=== PATIENT | female | born 1930 | race Caucasian/White ===

== ENCOUNTER 2017-01-02 16:32 | Inpatient (IN) ==
--- NOTE | 2017-01-02 17:21 | Emergency Department Note ---
Renata Flores Brittany, am scribing for, and in the presence of, Román Rosa MD 17:18. Moe Flores Charles R, MD, personally performed the services described in this documentation, ascribed by Juliet Yanez in my presence, and it is both accurate and complete 721 . Arrival - Arrival Chief Complaint: Shortness of Breath Stated Complaint: short of breath ED Nursing Triage Note: short of breath went to [facility] for treatment dx with R sided pneumonia CHF and Afib given 40 lasix 10 cardizem 500 levaquin allergies to sulfa and ASA pt is stable at this time chart and xray sent with pt Mode of Arrival: Stretcher Limitations: No Limitations Source: Family Time Seen by Provider: 01/02/17 16:57 - History of Present Illness HPI Narrative: This is a deaf 86 y/o white female,who presents to the ED by EMS for further evaluation of SOB which started last night. Her son reports pt was seen at [facility] for TX. Her son reports pt was DX with right sided pneumonia, CHF, and A- fib. She was given 40 Lasix, 10 Cardizem, and 500 Levaquin. Pt complains of right sided back and right sided shoulder pain. She states she thought it was Pleurisy. Her son notes some confusion since last night. Her son notes pt has a home health nurse come out to help pt bathe. Pt had a fever there at [facility] but here in the ED she is afebrile. Pt has no other complaints/pain in the ED a this time. Pt has a PMHx of diabetes, A-fib, and deaf. Pt denies a surgical Hx. Pt denies a family medical hx. Pt denies a social Hx. Onset (ago): hour(s) (Started last night) Consistency: constant Severity: moderate Review of System - Review of System 12 point system: reviewed and no additional remarkable complaints except as stated - Review of System Constitutional: Absent: fever Cardiovascular: Present: dyspnea on exertion Musculoskeletal: Present: back pain (Right sided back pain ), other (Right sided shoulder pain ) Medical,Surgical,& Family Hx - Medical History Cardio: History of: Cardiac Dysrhythmia (A-fib) HEENT: History of: Ear Problem (Pt is deaf but is able to communicate. ) Endocrine: History of: Diabetes Mellitus (IDDM), Diabetes Mellitus (NIDDM) Exam Vital Signs: Vital Signs Temperature 98.6 F 01/02/17 16:34 Pulse Rate 103 H 01/02/17 16:34 Respiratory Rate 19 01/02/17 16:34 Blood Pressure 124/84 01/02/17 16:34 O2 Sat by Pulse Oximetry 98 01/02/17 16:34 - General General appearance: alert, in no apparent distress, other (Deaf but communitcates execellent) - Head Head exam: Present: atraumatic, normocephalic, normal inspection - Eye Eye exam: Present: normal appearance, PERRL, EOMI. Absent: nystagmus - ENT ENT exam: Present: mucous membranes dry - Neck Neck exam: Present: normal inspection, full ROM, trachea midline. Absent: tenderness - Chest Chest inspection: Present: normal inspection, symmetric chest wall rise. Absent : tenderness - Respiratory Respiratory exam: Present: normal lung sounds bilaterally. Absent: rales, respiratory distress, rhonchi, stridor, wheezes - Cardiovascular Cardiovascular exam: Present: normal rhythm, tachycardia, normal heart sounds. Absent: murmur, rubs, gallop, clicks, JVD - Abdominal Exam Abdominal exam: Present: soft, normal bowel sounds. Absent: distention, tenderness, guarding, rebound, rigidity - Rectal Exam Rectal exam: Present: deferred - Extremities Exam Extremities exam: Present: normal capillary refill, pedal edema (+2 pedal Edema) , other (Hammertoe on the right foot) - Back Exam Back exam: Present: normal inspection, full ROM. Absent: tenderness, muscle spasm, rashes - Neurological Exam Neurological exam: Present: alert, oriented X3, CN II-XII intact. Absent: motor sensory deficit - Psychiatric Psychiatric exam: Present: normal affect, normal mood. Absent: depressed, agitated, anxious, flat affect, manic - Skin Skin exam: Present: warm, dry, intact, normal color. Absent: rash, cyanosis, diaphoresis, erythema, pallor, mottled Course - Consultations Consultation #1: Hospitalist will admit patient Time: 17:20 Results - Labs Lab Results: I have reviewed the patients labs Labs: All results reviewed from previous Disposition Clinical Impression: Right lower lobe pneumonia, Atrial fibrillation with RVR, Congestive heart failure, Generalized weakness, Fever Case discussed with: patient, patient's family Disposition: Still a Patient Condition: Guarded Time of Disposition: 17:21
[2017-01-02] MEDS ORDERED: FUROSEMIDE 40 MG/4 ML VIAL IV STA (17:22)
[2017-01-02] MEDS ORDERED: ALBUTEROL/IPRATROPIUM 3 ML NEB RESP TX STA (17:22)
[2017-01-02] MEDS ORDERED: FUROSEMIDE 40 MG/4 ML VIAL ONE (17:33)
--- NOTE | 2017-01-02 18:04 | Hospitalist History & Physical ---
Assessment and Plan - Time spent with patient Time spent with patient: Greater than 30 minutes (1) Dyspnea Status: Acute Assessment and plan: Admit for right pneumonia. Start antibiotics, IV hydration, nebs, supplemental oxygen as needed. Current Visit: Yes (2) Atrial fibrillation with RVR Status: Acute Assessment and plan: Cardiazem was given at [facility]; currently patient is Afib with controlled rate of 84-90 Current Visit: Yes History of Present Illness Chief complaint: shortness of breath History of present illness: Ms. Brito is a 86 year old white female with PMHx of Deafness; Chronic Afib; diabetes; GERD; HTN; CHF; constipation presented to the ED as a transfer from [facility] for further evaluation of Shortness of breath and palpitations and diagnosis of right sided pneumonia. She reports a productive cough of clear sputum. She reports shortness of breath started this morning. She had a low grade temperature or 100.0 per family. She denies chest pain, nausea, vomiting, chills, or headache. IN [facility] ED: CXR showed right lower lobe pneumonia; small right pleural effusion; cardiomegaly. LABS: BUN 30 Creatinine 0.9; Glucose 174; INR 1.21; PT 15.6; BNP 2088; She was given Lasix 40 ; Cardiazem 10; and Levaquin 500. Her son in the room and assisted with information during exam. Patient can read lips very well and also has a dry erase board to assist with communication. After discussion with Dr Rosa in the ED and Dr Fernandez with Hospital Services, it was agreed to admit patient for further evaluation and treatment. Home medications will be reviewed and reconciliation to follow. Home Medications Medication Instructions Recorded Confirmed Type Albuterol Inhaler [Proventil 2 puff INH Q6H PRN 01/02/17 01/02/17 History Inhaler] Albuterol Neb [Proventil Neb] 2.5 mg RESP TX Q4H PRN 01/02/17 01/02/17 History Cyanocobalamin (Vitamin B-12) 1,000 mcg IJ Q30D 01/02/17 01/02/17 History [Cyanocobalamin Injection] Dextran 70/Hypromellose/Pf 1 drop BOTH EYES QID 01/02/17 01/02/17 History [Genteal Tears 0.1%-0.3% Drop] Diclofenac Sodium [Diclofenac 1 applic TOP QID PRN 01/02/17 01/02/17 History Sodium 1% Gel] Docusate Sodium Cap [Colace Cap] 100 mg PO BID 01/02/17 01/02/17 History Fluticasone 50 Mcg Nasal [place] 1 spray BOTH NARES BID 01/02/17 01/02/17 History [Flonase Nasal [place]] Fluticasone/Salmeterol 250-50 1 puff INH BID 01/02/17 01/02/17 History [Advair 250-50] Gabapentin Cap/Tab [Neurontin 100 mg PO TID PRN 01/02/17 01/02/17 History Cap/Tab] Lactulose 20 gm PO QAM 01/02/17 01/02/17 History Metformin HCl [Metformin HCl ER] 1,000 mg PO DAILY W/BREAKFAST 01/02/17 History Metoprolol Succinate 25 mg PO QAM 01/02/17 01/02/17 History Montelukast Tab [Singulair Tab] 10 mg PO BEDTIME 01/02/17 01/02/17 History Omeprazole 20 mg PO AC BREAKFAST 01/02/17 01/02/17 History Ondansetron [Ondansetron Odt] 4 mg PO BID PRN 01/02/17 01/02/17 History Pravastatin [Pravachol] 40 mg PO BEDTIME 01/02/17 01/02/17 History Rivaroxaban [Xarelto] 15 mg PO QPM 01/02/17 01/02/17 History Sertraline [Zoloft] 25 mg PO QAM 01/02/17 01/02/17 History Telmisartan 40 mg PO QAM 01/02/17 01/02/17 History Theophylline ER Cap (24 Hr) 300 mg PO QAM 01/02/17 01/02/17 History [Simone-24] glipiZIDE [Glipizide] 10 mg PO BIDAC 01/02/17 01/02/17 History Medical,Surgical,& Family Hx - Medical History Cardio: History of: Cardiac Dysrhythmia (A-fib), CHF, Hypertension HEENT: History of: Ear Problem (Pt is deaf but is able to communicate. ) Endocrine: History of: Diabetes Mellitus (IDDM), Diabetes Mellitus (NIDDM) Review of systems: Patient is deaf but able to read lips and able to answer questions. Son was in the room and also assisted with information. ROS completed and pertinent positives and negatives in the HPI. Exam - Constitutional Vitals: Period Temp Pulse Resp BP Sys/Falcon Pulse Ox Last 24 Hr 98.6 F 103 19 124/84 98 General appearance: normal weight, no acute distress, other (Patient is Deaf) - Head Head exam: Present: normal inspection - Eye Eye exam: Present: EOMI - Neck Neck exam: Present: normal inspection - Respiratory Respiratory exam: Present: clear to auscultation bilaterally. Absent: rhonchi, stridor, wheezes - Cardiovascular Cardiovascular exam: Present: regular rate and rhythm (hx: chronic afib) - GI/Abdominal GI/Abdominal exam: Present: normal bowel sounds, soft. Absent: tenderness, rebound - Extremities Exam Extremities exam: Present: full ROM. Absent: edema - Neurological Exam Neurological exam: Present: alert, oriented X3 - Psychiatric Psychiatric exam: Present: normal affect, normal mood. Absent: agitated, anxious - Skin Skin exam: Present: normal color, warm, dry Results - Labs Lab Results: I have reviewed the past 24 hour labs Labs: Labs and xrays performed at [facility] records have been scanned in. CXR right lobe pneumonia BNP 2088
[2017-01-02] MEDS ORDERED: ONDANSETRON 4 MG/2 ML VIAL IV PRN (19:09)
[2017-01-02] MEDS ORDERED: ACETAMINOPHEN 325 MG TABLET PO PRN (19:09)
[2017-01-02] MEDS ORDERED: DICLOFENAC 1% GEL 100 GM TUBE TOP PRN (19:09)
[2017-01-02] MEDS ORDERED: ALBUTEROL 2.5 MG/3 ML NEB RESP TX SCH ×2 (19:09)
[2017-01-02] MEDS ORDERED: ONDANSETRON ODT 4 MG TABLET PO PRN (19:09)
[2017-01-02] MEDS ORDERED: DEXTROSE 50% 25 GM/50 ML SYRINGE IV PRN (19:09)
[2017-01-02] MEDS ORDERED: GABAPENTIN 100 MG CAPSULE PO PRN (19:09)
[2017-01-02] MEDS ORDERED: GLUCAGON 1 MG VIAL IM PRN (19:09)
[2017-01-02] MEDS: ALBUTEROL/IPRATROPIUM 3 ML NEB RESP TX SCH (19:34)
[2017-01-02] MEDS: MEROPENEM 500 MG in SODIUM CHLORIDE 0.9% 100 ML IV SCH (21:41)
[2017-01-02] MEDS: LEVOFLOXACIN INJ 750 MG in PREMIX 1 EACH IV SCH (21:42)
[2017-01-02] MEDS: FLUTICASONE/SALMETEROL 250-50 DISKUS 14 DOSE INH SCH (21:42)
[2017-01-02] MEDS: FLUTICASONE 50 MCG NASAL SPRAY 16 GM BOTTLE BOTH NARES SCH (21:42)
[2017-01-02] MEDS: DOCUSATE SODIUM 100 MG CAPSULE PO SCH (21:43)
[2017-01-02] MEDS: PRAVASTATIN 40 MG TABLET PO SCH (21:43)
[2017-01-02] MEDS: MONTELUKAST 10 MG TABLET PO SCH (21:43)
[2017-01-02] MEDS: INSULIN LISPRO 100 UNIT/ML SUBCUT SCH (22:00)
[2017-01-02] MEDS: SODIUM CHLORIDE 0.9% 1,000 ML IV SCH (22:01)
[2017-01-03] MEDS: ALBUTEROL/IPRATROPIUM 3 ML NEB RESP TX SCH ×5 (00:39→19:57)
[2017-01-03] MEDS: POLYVINYL ALCOHOL 1.4% OPH SOLN 15 ML BOTTLE BOTH EYES SCH ×5 (00:54→21:03)
[2017-01-03] MEDS ORDERED: ALBUTEROL 2.5 MG/3 ML NEB RESP TX PRN (04:30)
[2017-01-03 04:54] LABS: Basophils % 0.2 % (0.0-0.8); Eosinophils # 0.1 10*3/uL (0.0-0.87); Eosinophils % 0.9 % (0.00-10.9); Hematocrit 35.8 VOL% (35.7-47.0); Hemoglobin 11.6 GM/DL (12.0-16.0); Immature Granulocytes % 0.4 %; Immature Granulocytes Absolute 0.03 #; Lymphocytes # 1.1 10*3/uL (1.4-4.0); Lymphocytes % 13.9 % (21.3-54.2); Mean Corpuscular HGB Conc 32.4 GM/DL (32-36); Mean Corpuscular Hemoglobin 28 PG (27-34); Mean Corpuscular Volume 87.1 FL (87-102); Mean Platelet Volume 11.6 FL (9.6-12.0); Monocytes % 12.1 % (1.7-12.7); Neutrophils # 5.9 10*3/uL (1.4-7.4); Neutrophils % 72.5 % (38.7-73.9); Platelet Count 170 T/CUMM (130-400); Red Blood Count 4.11 MC/CUMM (3.8-5.5); Red Cell Distribution Width 15.7 % (9.3-17.3); White Blood Count 8.1 T/CUMM (4-12)
[2017-01-03 05:48] LABS: Alanine Aminotransferase 17 U/L (13-56); Albumin 2.5 G/DL (3.4-5.0); Alkaline Phosphatase 90 U/L (45-117); Aspartate Amino Transferase 14 U/L (0-37); Blood Urea Nitrogen 26 MG/DL (7-18); Calcium 8.5 MG/DL (8.5-10.1); Glucose 293 MG/DL (74-106); Osmolality,Calculated 290.7 MOS/KG (273-304); Potassium 3.6 MMOL/L (3.5-5.1); Sodium 138 MMOL/L (136-145); Total Protein 5.7 G/DL (6.4-8.3); Troponin I Only < 0.015 NG/ML (0.00-0.045)
[2017-01-03] MEDS ORDERED: METOPROLOL SUCCINATE XL 25 MG TABLET PO SCH (09:00)
[2017-01-03] MEDS ORDERED: THEOPHYLLINE ER (24 HR) 300 MG CAPSULE PO SCH (09:00)
[2017-01-03] MEDS: MEROPENEM 500 MG in SODIUM CHLORIDE 0.9% 100 ML IV SCH ×2 (09:23→21:04)
[2017-01-03] MEDS: TELMISARTAN 40 MG TABLET PO SCH (10:20)
[2017-01-03] MEDS: PANTOPRAZOLE 40 MG TABLET PO SCH (10:20)
[2017-01-03] MEDS: glipiZIDE 5 MG TABLET PO SCH ×2 (10:20→17:42)
[2017-01-03] MEDS: DOCUSATE SODIUM 100 MG CAPSULE PO SCH ×2 (10:20→21:03)
[2017-01-03] MEDS: INSULIN LISPRO 100 UNIT/ML SUBCUT SCH ×4 (10:24→21:02)
[2017-01-03] MEDS: LACTULOSE 20 GM/30 ML UDCUP PO SCH (10:25)
[2017-01-03] MEDS: FLUTICASONE 50 MCG NASAL SPRAY 16 GM BOTTLE BOTH NARES SCH ×2 (10:27→21:03)
[2017-01-03] MEDS: FLUTICASONE/SALMETEROL 250-50 DISKUS 14 DOSE INH SCH ×2 (10:27→21:03)
[2017-01-03] MEDS: SERTRALINE 25 MG TABLET PO SCH (10:28)
[2017-01-03] MEDS ORDERED: AMIODARONE INJ 150 MG in DEXTROSE 5% 100 ML IV ONE (13:30)
[2017-01-03] MEDS ORDERED: DIGOXIN 0.5 MG/2 ML AMP IV ONE (14:07)
--- NOTE | 2017-01-03 14:12 | Hospitalist Progress Note ---
Assessment and Plan (1) Pneumonia Status: Acute Assessment and plan: The patient will continue antibiotics with meropenem and Levaquin. I am going to reduce the dose of her beta agonist nebulizers and discontinue theophylline for now. We will obtain cardiology consultation, give a dose of digoxin to reduce heart rate, and check troponin level in the morning. Today's electrolytes revealed no abnormalities. Current Visit: Yes (2) Atrial fibrillation with RVR Status: Acute Current Visit: Yes Hospitalist: Subjective Interval history: Mrs. Brito has less congestion today than she had yesterday. She is afebrile this morning. The patient began having atrial tachycardia this afternoon. Hold her dose of amiodarone. After receiving the initial few milliliters of the amiodarone bolus the patient had a red reaction and became hypertensive. The reaction is now fading. The infusion was discontinued. The patient continues with atrial fibrillation rapid ventricular response. She will be treated with digoxin and we will obtain cardiology evaluation. Exam - Constitutional Vitals: Period Temp Pulse Resp BP Sys/Falcon Pulse Ox Last 24 Hr 96.1 F-99.0 F 72-117 16-28 113-129/56-84 90-100 Exam: Constitutional System: Moderate distress on account of palpitations. No tremulousness. Head: Normocephalic, atraumatic. Ears, Nose and Throat System: No evidence of Otitis or Mastoiditis. No epistaxis or discharge Eyes System: Pupils equal, round, and reactive. Extraocular muscles intact. Neck: Supple, without adenopathy, No jugular venous distention. No thyromegaly , neck mass, or prior surgery apparent. Respiratory System: Chest less congested to auscultation. Cardiovascular System: Heart with irregular, tachycardic rate and rhythm. No murmur. GI System: Abdomen soft, nontender. Normo active bowel sounds present. Musculoskeletal System: limbs with no pedal edema. Full distal pulses. Neurological System: No discernable sensory deficit. No aphasia Psychiatric System: Conversation is rational Results - Labs CBC & BMP: 01/03/17 04:46 01/03/17 04:46 Lab Results: I have reviewed the past 24 hour labs Quality Measures - VTE Contraindication to Pharmacological VTE Prophylaxis: Already on Theraputic Agent , No Prophylaxis Needed
[2017-01-03] MEDS ORDERED: METOPROLOL SUCCINATE XL 25 MG TABLET PO ONE (15:08)
--- NOTE | 2017-01-03 15:48 | Cardiology Consult Note ---
<Capri Mosquera E - Last Filed: 01/03/17 15:33> Assessment and Plan - Time spent with patient Time spent with patient: Greater than 30 minutes (due to assessment, plan, documentation, and communication barrier) (1) Atrial fibrillation with RVR Status: Acute Assessment and plan: See plan of care listed below. Current Visit: Yes (2) Pneumonia Status: Acute Assessment and plan: See plan of care listed below. Current Visit: Yes (3) Deafness Status: Chronic Assessment and plan: See plan of care listed below. Current Visit: Yes (4) Hypertension Status: Chronic Assessment and plan: See plan of care listed below. Current Visit: Yes (5) Diabetes mellitus Status: Chronic Assessment and plan: See plan of care listed below. Current Visit: Yes (6) Chronic atrial fibrillation Status: Chronic Assessment and plan: See plan of care listed below. Current Visit: Yes (7) GERD (gastroesophageal reflux disease) Status: Chronic Assessment and plan: See plan of care listed below. Current Visit: Yes (8) Congestive heart failure Status: Acute Assessment and plan: See plan of care listed below. Current Visit: Yes (9) Advanced age Status: Chronic Assessment and plan: See plan of care listed below. 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 Collins PCP: Dr. Nguyen Ms. Brito is a 86 year old female with risk factors significant for hypertension, diabetes, age, sedentary lifestyle. She also has a past medical history of deafness, chronic atrial fibrillation, GERD, congestive heart failure , and constipation. 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 She moved here several years ago from [place] and lives with her son and [id number]. She denies a history of VT or stroke. There is no family present at the time of exam but patient does have a dry erase board in the room to assist with communication. She also is able to read lips. She reports that she has never had a stress test or heart catheterization in the past and is not followed by [facility] in [place]. Ms. Brito was transferred to our facility from [facility] for further evaluation of shortness of breath and palpitations and diagnosis of right-sided pneumonia. Apparently, she had been having a productive cough of clear sputum and shortness of breath that began the morning of admission. Her family reports a low-grade temperature of 100.0. She has not had any chest pain, nausea, vomiting, chills, or headache. Since admission, she has had fluctuation of her heart rate with many elevated rates above 100. Today, she has had persistent heart rates in the 120s and above and we were consulted to see her. She was trialed on amiodarone but received a few milliliters of this and developed a head reaction and became hypertensive. The infusion was discontinued and her flushing is now fading. She was given 0.5 mg IV digoxin. She is on Toprol-XL 25 mg p.o. daily. Blood pressure at the time of my exam was 150/90. We will go ahead and increase her dose of Toprol 50 mg p.o. daily. Echocardiogram is pending. ASSESSMENT/PLAN: 1. ATRIAL FIBRILLATION WITH RVR - Currently in atrial fibrillation with rates in the 120s. I've increased her Toprol XL and she has just received IV digoxin. Will further discuss with Dr. Collins and await additional recommendations. 2. PNEUMONIA - Chest x-ray at [place] showed right lower lobe pneumonia, small right pleural effusion, and cardiomegaly. She was admitted to hospitalist services and has been started on IV antibiotics and breathing treatments. She also has O2 PRN and is mildly tachypneic upon exam. 3. DEAFNESS - patient is able to read lips and also has a dry erase board in the room to assist with communication. 4. HYPERTENSION - Has been fairly well controlled with occasional elevated reading. Will continue to monitor and adjust accordingly. 5. DIABETES MELLITUS - She is on accuchecks with sliding scale insulin. 6. CHRONIC ATRIAL FIBRILLATION - Chronically anticoagulated with xarelto 15mg PO QPM. H&H is currently stable. 7. GERD - Continue PPI. 8. CONGESTIVE HEART FAILURE - She received 40mg Lasix IV in the emergency room and currently has a rodriguez catheter in place for accurate I&O measurement. 9. ADVANCED AGE - Patient lives with her son and [id number]. CC: Brendan Fernandez MD - Home Medications and Allergies Home Medications: Home Medications Medication Instructions Recorded Confirmed Type Albuterol Inhaler [Proventil 2 puff INH Q6H PRN 01/02/17 01/02/17 History Inhaler] Albuterol Neb [Proventil Neb] 2.5 mg RESP TX Q4H PRN 01/02/17 01/02/17 History Cyanocobalamin (Vitamin B-12) 1,000 mcg IJ Q30D 01/02/17 01/02/17 History [Cyanocobalamin Injection] Dextran 70/Hypromellose/Pf 1 drop BOTH EYES QID 01/02/17 01/02/17 History [Genteal Tears 0.1%-0.3% Drop] Diclofenac Sodium [Diclofenac 1 applic TOP QID PRN 01/02/17 01/02/17 History Sodium 1% Gel] Docusate Sodium Cap [Colace Cap] 100 mg PO BID 01/02/17 01/02/17 History Fluticasone 50 Mcg Nasal [place] 1 spray BOTH NARES BID 01/02/17 01/02/17 History [Flonase Nasal [place]] Fluticasone/Salmeterol 250-50 1 puff INH BID 01/02/17 01/02/17 History [Advair 250-50] Gabapentin Cap/Tab [Neurontin 100 mg PO TID PRN 01/02/17 01/02/17 History Cap/Tab] Lactulose 20 gm PO QAM 01/02/17 01/02/17 History Metformin HCl [Metformin HCl ER] 1,000 mg PO DAILY W/BREAKFAST 01/02/17 History Metoprolol Succinate 25 mg PO QAM 01/02/17 01/02/17 History Montelukast Tab [Singulair Tab] 10 mg PO BEDTIME 01/02/17 01/02/17 History Omeprazole 20 mg PO AC BREAKFAST 01/02/17 01/02/17 History Ondansetron [Ondansetron Odt] 4 mg PO BID PRN 01/02/17 01/02/17 History Pravastatin [Pravachol] 40 mg PO BEDTIME 01/02/17 01/02/17 History Rivaroxaban [Xarelto] 15 mg PO QPM 01/02/17 01/02/17 History Sertraline [Zoloft] 25 mg PO QAM 01/02/17 01/02/17 History Telmisartan 40 mg PO QAM 01/02/17 01/02/17 History Theophylline ER Cap (24 Hr) 300 mg PO QAM 01/02/17 01/02/17 History [Simone-24] glipiZIDE [Glipizide] 10 mg PO BIDAC 01/02/17 01/02/17 History Allergies/Adverse Reactions: Allergies Allergy/AdvReac Type Severity Reaction Status Date / Time aspirin Allergy Verified 01/02/17 18:16 cephalexin [From Keflex] Allergy Verified 01/02/17 18:16 Penicillins Allergy Verified 01/02/17 18:16 Sulfa (Sulfonamide Allergy Verified 01/02/17 18:16 Antibiotics) Review of systems: - Constitutional: Present: fatigue, As per HPI. Absent: anorexia, chills, daytime sleepiness, excessive sweating, fever(s), frequent falls, headache(s), increased appetite, lethargy, malaise, night sweats, stops breathing during sleep, weakness, weight gain, weight loss. - EENT Eyes: Present: As per HPI. Absent: blurry vision, diplopia, loss of vision Ears: Present: loss of hearing (deaf), As per HPI. Absent: ear discharge, ear pain Nose, mouth and throat: Present: As per HPI. Absent: dysphagia, epistaxis, headache(s), hoarseness, lip swelling, nasal congestion, neck mass, neck pain, sinus pressure, sore throat, throat swelling, tongue swelling, vertigo - Cardiovascular: Present: dyspnea, dyspnea on exertion, palpitations, as per HPI. Absent: chest pain at rest, chest pain with activity, edema, claudication , diaphoresis, radiating jaw, neck or arm pain, lightheadedness, orthopnea, PND - Respiratory: Present: dyspnea, dyspnea on exertion, cough, as per HPI. Absent : hemoptysis, wheezing, snoring, pain on inspiration - Gastrointestinal: Present: As per HPI. Absent: abdominal pain, bloating, change in bowel habits, constipation, diarrhea, heartburn, hematemesis, hematochezia, loose stools, melena, nausea, vomiting - Genitourinary: Present: As per HPI. Absent: difficulty urinating, dysuria, flank pain, hematuria, nocturia, urinary frequency, urinary incontinence - Musculoskeletal: Present: As per HPI. Absent: arthralgias, back pain, joint swelling, limited range of motion, muscle cramps, muscle weakness, myalgias - Neurological: Present: As per HPI. Absent: abnormal gait, abnormal speech, behavioral changes, confusion, convulsions, disequilibrium, dizziness, focal weakness, frequent falls, headache(s), memory loss, numbness, paresthesias, radicular pain, syncope, tremor(s) - Psychiatric: Present: As per HPI. Absent: anxiety, confusion, depression, panic attacks - Endocrine: Present: fatigue, As per HPI. Absent: cold intolerance, heat intolerance, polydipsia, polyphagia - Hematologic/Lymphatic: Present: As per HPI. Absent: easy bleeding, easy bruising, lymphadenopathy Medical,Surgical,& Family Hx - Medical History Cardio: History of: Cardiac Dysrhythmia (A-fib), CHF, Hypertension HEENT: History of: Ear Problem (Pt is deaf but is able to communicate. ) Endocrine: History of: Diabetes Mellitus (IDDM), Diabetes Mellitus (NIDDM) Respiratory: History of: Pneumonia - Social History Smoking Status: Never smoker Frequency of Alcohol Use: None Type of Drug Use: None Marital Status: Lives With:: Children Physical Examination Vital Signs Temp Pulse Resp BP Pulse Ox 98.6 F 103 H 19 124/84 98 01/02/17 16:34 01/02/17 16:34 01/02/17 16:34 01/02/17 16:34 01/02/17 16:34 Exam: General appearance: Pleasant and cooperative. Overweight, no acute distress. Head exam: Present: normal inspection, normocephalic, atraumatic. Absent: hematoma, laceration Eye exam: Present: EOMI. Absent: conjunctival injection, nystagmus, periorbital swelling, scleral icterus, laceration to eyelids Pupils: Present: PERRL. Absent: constricted, dilated, fixed, irregular, unequal ENT exam: Present: normal exam, normal external ear exam (patient is deaf) Neck exam: Present: normal inspection. Absent: lymphadenopathy, meningismus, tenderness, thyromegaly Respiratory exam: Present: slight expiratory wheeze in the right upper lobe with few rhonchi, otherwise clear to auscultation. Absent: accessory muscle use , chest wall tenderness. Cardiovascular exam: Present: Irregular rate and rhythm, tachycardia. Absent: gallop, rubs GI/Abdominal exam: Present: normal bowel sounds, soft. Absent: distended, firm , guarding, hernia, mass, tenderness, rebound. Extremities exam: Present: normal inspection, normal capillary refill. Upper extremity pulses 2+. Lower extremity pulses 2+. Absent: calf tenderness, edema Musculoskeletal: Present: No Fluid Collection, No Pain, Normal Range of Motion Back exam: Present: normal inspection. Absent: muscle spasm, vertebral tenderness Neurological exam: Present: alert, oriented X3, grossly intact without resting or essential tremor Psychiatric exam: Present: normal affect, normal mood Skin exam: Present: normal color, warm, dry, intact. Absent: cyanosis, diaphoretic, rash, urticaria Result/EKG - Labs CBC & BMP: 01/03/17 04:46 01/03/17 04:46 Lab Results: I have reviewed the past 24 hour labs Labs: Laboratory Results - last 24 hr 01/02/17 01/03/17 01/03/17 21:45 01:36 04:46 WBC 8.1 RBC 4.11 Hgb 11.6 L Hct 35.8 MCV 87.1 MCH 28 MCHC 32.4 RDW 15.7 Plt Count 170 MPV 11.6 Neut % (Auto) 72.5 Lymph % (Auto) 13.9 L Wayne % (Auto) 12.1 Eos % (Auto) 0.9 Baso % (Auto) 0.2 Neut # (Auto) 5.9 Lymph # (Auto) 1.1 L Wayne # (Auto) 1.0 H Eos # (Auto) 0.1 Baso # (Auto) 0.0 Immature Gran % 0.4 Nucleated RBC % 0.0 Immature Gran # 0.03 Nucleated RBCs # 0.00 Immature Plt Fraction 0.0 Sodium Potassium Chloride Carbon Dioxide Anion Gap BUN Creatinine GFR Calculation BUN/Creatinine Ratio Glucose POC Glucose 234 H 88 Hemoglobin A1c Calculated Osmolality Calcium Magnesium Total Bilirubin AST ALT Alkaline Phosphatase Total Creatine Kinase Troponin I Total Protein Albumin Globulin Albumin/Globulin Ratio 01/03/17 01/03/17 01/03/17 04:46 04:46 07:37 WBC RBC Hgb Hct MCV MCH MCHC RDW Plt Count MPV Neut % (Auto) Lymph % (Auto) Wayne % (Auto) Eos % (Auto) Baso % (Auto) Neut # (Auto) Lymph # (Auto) Wayne # (Auto) Eos # (Auto) Baso # (Auto) Immature Gran % Nucleated RBC % Immature Gran # Nucleated RBCs # Immature Plt Fraction Sodium 138 Potassium 3.6 Chloride 95 L Carbon Dioxide 36 H Anion Gap 10.6 BUN 26 H Creatinine 1.10 H GFR Calculation 44 BUN/Creatinine Ratio 23.00 H Glucose 293 H POC Glucose 203 H Hemoglobin A1c 8.5 H Calculated Osmolality 290.7 Calcium 8.5 Magnesium 2.0 Total Bilirubin 0.90 AST 14 ALT 17 Alkaline Phosphatase 90 Total Creatine Kinase 22 L Troponin I < 0.015 Total Protein 5.7 L Albumin 2.5 L Globulin 3.2 Albumin/Globulin Ratio 0.7 L 01/03/17 11:23 WBC RBC Hgb Hct MCV MCH MCHC RDW Plt Count MPV Neut % (Auto) Lymph % (Auto) Wayne % (Auto) Eos % (Auto) Baso % (Auto) Neut # (Auto) Lymph # (Auto) Wayne # (Auto) Eos # (Auto) Baso # (Auto) Immature Gran % Nucleated RBC % Immature Gran # Nucleated RBCs # Immature Plt Fraction Sodium Potassium Chloride Carbon Dioxide Anion Gap BUN Creatinine GFR Calculation BUN/Creatinine Ratio Glucose POC Glucose 225 H Hemoglobin A1c Calculated Osmolality Calcium Magnesium Total Bilirubin AST ALT Alkaline Phosphatase Total Creatine Kinase Troponin I Total Protein Albumin Globulin Albumin/Globulin Ratio - EKG EKG results: interpreted by me EKG shows: atrial fibrillation Quality Measures - VTE Contraindication to Pharmacological VTE Prophylaxis: Already on Theraputic Agent , No Prophylaxis Needed <Ny Collins - Last Filed: 01/03/17 20:19> Assessment and Plan (1) Atrial fibrillation with RVR Status: Acute Current Visit: Yes (2) Congestive heart failure Status: Acute Current Visit: Yes (3) Advanced age Status: Chronic Current Visit: Yes (4) Chronic atrial fibrillation Status: Chronic Current Visit: Yes (5) Diabetes mellitus Status: Chronic Current Visit: Yes (6) GERD (gastroesophageal reflux disease) Status: Chronic Current Visit: Yes (7) Hypertension Status: Chronic Current Visit: Yes History of Present Illness - Consult Narrative History of present illness: Ms. Brito is a 86 year old female CC: Brendan Fernandez MD Review of systems: Difficult communicate with secondary to deafness. She is very pleasant and ROS as above Physical Examination Vital Signs Temp Pulse Resp BP Pulse Ox 98.6 F 103 H 19 124/84 98 01/02/17 16:34 01/02/17 16:34 01/02/17 16:34 01/02/17 16:34 01/02/17 16:34 Exam: murmur of MR/TR. Hyperdynamic precordium Result/EKG - Labs CBC & BMP: 01/03/17 04:46 01/03/17 04:46 Labs: Laboratory Results - last 24 hr 01/02/17 01/03/17 01/03/17 21:45 01:36 04:46 WBC 8.1 RBC 4.11 Hgb 11.6 L Hct 35.8 MCV 87.1 MCH 28 MCHC 32.4 RDW 15.7 Plt Count 170 MPV 11.6 Neut % (Auto) 72.5 Lymph % (Auto) 13.9 L Wayne % (Auto) 12.1 Eos % (Auto) 0.9 Baso % (Auto) 0.2 Neut # (Auto) 5.9 Lymph # (Auto) 1.1 L Wayne # (Auto) 1.0 H Eos # (Auto) 0.1 Baso # (Auto) 0.0 Immature Gran % 0.4 Nucleated RBC % 0.0 Immature Gran # 0.03 Nucleated RBCs # 0.00 Immature Plt Fraction 0.0 Sodium Potassium Chloride Carbon Dioxide Anion Gap BUN Creatinine GFR Calculation BUN/Creatinine Ratio Glucose POC Glucose 234 H 88 Hemoglobin A1c Calculated Osmolality Calcium Magnesium Total Bilirubin AST ALT Alkaline Phosphatase Total Creatine Kinase Troponin I Total Protein Albumin Globulin Albumin/Globulin Ratio 01/03/17 01/03/17 01/03/17 04:46 04:46 07:37 WBC RBC Hgb Hct MCV MCH MCHC RDW Plt Count MPV Neut % (Auto) Lymph % (Auto) Wayne % (Auto) Eos % (Auto) Baso % (Auto) Neut # (Auto) Lymph # (Auto) Wayne # (Auto) Eos # (Auto) Baso # (Auto) Immature Gran % Nucleated RBC % Immature Gran # Nucleated RBCs # Immature Plt Fraction Sodium 138 Potassium 3.6 Chloride 95 L Carbon Dioxide 36 H Anion Gap 10.6 BUN 26 H Creatinine 1.10 H GFR Calculation 44 BUN/Creatinine Ratio 23.00 H Glucose 293 H POC Glucose 203 H Hemoglobin A1c 8.5 H Calculated Osmolality 290.7 Calcium 8.5 Magnesium 2.0 Total Bilirubin 0.90 AST 14 ALT 17 Alkaline Phosphatase 90 Total Creatine Kinase 22 L Troponin I < 0.015 Total Protein 5.7 L Albumin 2.5 L Globulin 3.2 Albumin/Globulin Ratio 0.7 L 01/03/17 01/03/17 11:23 16:30 WBC RBC Hgb Hct MCV MCH MCHC RDW Plt Count MPV Neut % (Auto) Lymph % (Auto) Wayne % (Auto) Eos % (Auto) Baso % (Auto) Neut # (Auto) Lymph # (Auto) Wayne # (Auto) Eos # (Auto) Baso # (Auto) Immature Gran % Nucleated RBC % Immature Gran # Nucleated RBCs # Immature Plt Fraction Sodium Potassium Chloride Carbon Dioxide Anion Gap BUN Creatinine GFR Calculation BUN/Creatinine Ratio Glucose POC Glucose 225 H 265 H Hemoglobin A1c Calculated Osmolality Calcium Magnesium Total Bilirubin AST ALT Alkaline Phosphatase Total Creatine Kinase Troponin I Total Protein Albumin Globulin Albumin/Globulin Ratio
[2017-01-03] MEDS: SODIUM CHLORIDE 0.9% 1,000 ML IV SCH ×2 (16:08→18:12)
[2017-01-03] MEDS: RIVAROXABAN 15 MG TABLET PO SCH (18:47)
[2017-01-03] MEDS: LEVOFLOXACIN INJ 750 MG in PREMIX 1 EACH IV SCH (18:47)
--- NOTE | 2017-01-03 18:51 | ECHO Report ---
Alina Brito Exam Date: 01/03/2017 15:55 Referring Physician: Technologist: cristi Sanches ARDMS, RVT Age: 86 Ht (in): 66 Wt (lb): 140 Gender: F Exam Location: [facility] Echo Indications: Atrial fibrillation, Dyspnea, unspecified, Cardiomyopathy BP: 120 / 56 HR: 124 Rhythm: Atrial fibrillation Technical Quality: Good IMPRESSIONS Left ventricular ejection fraction is estimated at 60%. Diastolic parameters are equivocal. The patient is in atrial fibrillation. Mild-moderate mitral valve regurgitation. 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 SEVERE biatrial enlargement Moderate pulmonary hypertension with RVSP estimated at 48 mmHg plus the right atiral pressure MEASUREMENTS (Male / Female) Normal Values 2D ECHO LV Diastolic Diameter PLAX 4.2 cm 4.2 - 5.9 / 3.9 - 5.3 cm LV Systolic Diameter PLAX 2.6 cm LV Fractional Shortening PLAX 38.3 % IVS Diastolic Thickness 0.8 cm 0.6 - 1.0 / 0.6 - 0.9 cm LVPW Diastolic Thickness 0.9 cm 0.6 - 1.0 / 0.6 - 0.9 cm RV Internal Dim ED PLAX 3.4 cm Aortic Root Diameter 2.9 cm LA Systolic Diameter LX 6.0 cm 3.0 - 4.0 / 2.7 - 3.8 cm DOPPLER TR Peak Velocity 343.0 cm/s TR Peak Gradient 47.1 mmHg FINDINGS Left Ventricle Normal left ventricular cavity size. Normal left ventricular wall thickness. Left ventricular ejection fraction is estimated at 60%. Diastolic parameters are equivocal. The patient is in atrial fibrillation. Right Ventricle Enlarged right ventricular size. Right Atrium Severely increased right atrial size Left Atrium Severely increased left atrial size. Mitral Valve Mildly thickened mitral valve. Mild-moderate mitral valve regurgitation. Aortic Valve Aortic valve sclerosis without stenosis or regurgitation. Tricuspid Valve Morphologically normal tricuspid valve. Mild tricuspid valve regurgitation. Tricuspid regurgitation velocities suggest a RVSP of 48 mmHg plus the right atrial pressure. Pulmonic Valve Morphologically normal pulmonic valve. Mild pulmonary valve regurgitation. Pericardium Small pericardial effusion Aorta Normal ascending aorta dimension. Ny Collins (Electronically Signed) Final Date: 03 January 2017 18:50
[2017-01-03] MEDS: MONTELUKAST 10 MG TABLET PO SCH (21:03)
[2017-01-03] MEDS: PRAVASTATIN 40 MG TABLET PO SCH (21:03)
[2017-01-04] MEDS: ALBUTEROL/IPRATROPIUM 3 ML NEB RESP TX SCH ×4 (00:19→18:59)
[2017-01-04 04:41] LABS: Basophils % 0.3 % (0.0-0.8); Eosinophils # 0.1 10*3/uL (0.0-0.87); Eosinophils % 1.4 % (0.00-10.9); Hematocrit 35.7 VOL% (35.7-47.0); Hemoglobin 11.2 GM/DL (12.0-16.0); Immature Granulocytes % 0.4 %; Immature Granulocytes Absolute 0.03 #; Lymphocytes # 1.3 10*3/uL (1.4-4.0); Lymphocytes % 18.5 % (21.3-54.2); Mean Corpuscular HGB Conc 31.4 GM/DL (32-36); Mean Corpuscular Hemoglobin 28 PG (27-34); Mean Corpuscular Volume 88.6 FL (87-102); Mean Platelet Volume 11.8 FL (9.6-12.0); Monocytes % 13.5 % (1.7-12.7); Neutrophils # 4.6 10*3/uL (1.4-7.4); Neutrophils % 65.9 % (38.7-73.9); Platelet Count 175 T/CUMM (130-400); Red Blood Count 4.03 MC/CUMM (3.8-5.5); Red Cell Distribution Width 15.3 % (9.3-17.3)
[2017-01-04 05:12] LABS: Troponin I Only < 0.015 NG/ML (0.00-0.045)
[2017-01-04 05:18] LABS: Calcium 9.3 MG/DL (8.5-10.1); Magnesium 2.3 MG/DL (1.8-2.4); Osmolality,Calculated 284.3 MOS/KG (273-304); Potassium 4.5 MMOL/L (3.5-5.1)
--- NOTE | 2017-01-04 08:22 | EKG Report ---
Stationary ECG Study [facility] Test Date: 01/04/2017 7:44:23 AM Pat Name: MU BARROW Department: Room: 279 Gender: F Launch Check Out: LUIS : 1930 Requested by: Brendan Fernandez Order Number: [id number] Reading MD: SHARI OGDEN Intervals [place] Rate: 104 P: 999 [place]: 0 QRS: 107 QRSD: 93 T: 87 QT: 377 QTc: 437 Interpretive Statements ATRIAL FIBRILLATION WITH RAPID VENTRICULAR RESPONSE SEPTAL MYOCARDIAL INFARCTION, OF INDETERMINATE AGE Electronically Signed On 01-05-17 06:58:19 CDT by SHARI OGDEN [email or web address]
--- NOTE | 2017-01-04 08:36 | XRay Report ---
History is fever and coughing Chest, 2 views Comparison 01/02/2017 The heart remains enlarged The lungs remain chronically hyperexpanded with mild diffuse interstitial prominence. The elongated the confluent 3 x 6 cm infiltrate in the right mid chest remains extending to the hilum with mild blunting of both costophrenic angles. No consolidation seen on the left. Left abdominal calcifications again demonstrated Impression: No significant change in right lung infiltrates superimposed on cardiomegaly and fibroemphysematous changes. Follow-up until clear is necessary to exclude underlying mass or hilar adenopathy PROCEDURE INTERPRETED AT [facility] DEPARTMENT OF RADIOLOGY Final Report Signed by: Dr. La Smith
[2017-01-04] MEDS ORDERED: METOPROLOL SUCCINATE XL 50 MG TABLET PO SCH (09:00)
--- NOTE | 2017-01-04 09:33 | Physician Query Form ---
CLICK EDIT DOCUMENT TO SELECT QUERY ANSWER --> OK --> SIGN Annmarie Barr RN Clinical [employer] W) [phone] (f) [phone] [email or web address] PROVIDERS: Make your selection(s) from the choices in EACH section by typing an "x" and enter comments in the comment section. Please use your independent medical judgment in providing your response. This request does not imply that any particular answer is desired or expected. CLINICAL INDICATORS: (Providers should not edit this section) Based on documentation of "acute CHF", BNP done at [facility] prior to arrival was 2087. Echo showed EF of 60%. Pt. treated with IV Lasix. Please provide further specificity regarding CHF. TYPE: ( ) Systolic (HFrEF - heart failure with reduced systolic function/EF) (X ) Diastolic (HFpEF - heart failure with preserved systolic function/EF) ( ) Combined Systolic/Diastolic ( ) Other, please specify: ( ) Clinically unable to determine COMMENTS: PLEASE ALSO DOCUMENT RESPONSE IN PROGRESS NOTES AND/OR DISCHARGE SUMMARY Use of terms such as suspected, likely, or probable (associated with a specific diagnosis that is being evaluated, monitored, or treated as if it exists) are acceptable and can be restated in the discharge summary if not ruled out. MTDD
[2017-01-04] MEDS: TELMISARTAN 40 MG TABLET PO SCH (10:01)
[2017-01-04] MEDS: MEROPENEM 500 MG in SODIUM CHLORIDE 0.9% 100 ML IV SCH ×2 (10:01→21:23)
[2017-01-04] MEDS: PANTOPRAZOLE 40 MG TABLET PO SCH (10:01)
[2017-01-04] MEDS: DOCUSATE SODIUM 100 MG CAPSULE PO SCH ×2 (10:01→21:26)
[2017-01-04] MEDS: METOPROLOL SUCCINATE XL 50 MG TABLET PO SCH (10:01)
[2017-01-04] MEDS: SERTRALINE 25 MG TABLET PO SCH (10:01)
[2017-01-04] MEDS: glipiZIDE 5 MG TABLET PO SCH ×2 (10:01→17:40)
[2017-01-04] MEDS: FLUTICASONE 50 MCG NASAL SPRAY 16 GM BOTTLE BOTH NARES SCH ×2 (10:02→21:27)
[2017-01-04] MEDS: POLYVINYL ALCOHOL 1.4% OPH SOLN 15 ML BOTTLE BOTH EYES SCH ×4 (10:02→21:27)
[2017-01-04] MEDS: FLUTICASONE/SALMETEROL 250-50 DISKUS 14 DOSE INH SCH ×2 (10:02→21:27)
[2017-01-04] MEDS: LACTULOSE 20 GM/30 ML UDCUP PO SCH (10:02)
[2017-01-04] MEDS: INSULIN LISPRO 100 UNIT/ML SUBCUT SCH ×4 (10:02→21:25)
--- NOTE | 2017-01-04 11:32 | Cardiology Progress Note ---
Assessment and Plan - Time spent with patient Time spent with patient: Less than 30 minutes (1) Atrial fibrillation with RVR Status: Acute Assessment and plan: She remains in atrial fibrillation, rates better controlled today in the 90s. Continue Toprol XL 50mg po daily. Will continue to monitor. Will await additional reccomendations from Dr. Collins. Current Visit: Yes (2) Pneumonia Status: Acute Assessment and plan: Chest x-ray at [place] showed right lower lobe pneumonia, small right pleural effusion, and cardiomegaly. She was admitted to hospitalist services and has been started on IV antibiotics and breathing treatments. She also has O2 PRN. Current Visit: Yes (3) Deafness Status: Chronic Assessment and plan: Patient is able to read lips and also has a dry erase board in the room to assist with communication. She is also able to speak but at times it is difficult to understand her. Current Visit: Yes (4) Hypertension Status: Chronic Assessment and plan: Has been fairly well controlled with occasional elevated reading. Will continue to monitor and adjust accordingly. Current Visit: Yes (5) Diabetes mellitus Status: Chronic Assessment and plan: She is on accuchecks with sliding scale insulin. Current Visit: Yes (6) Chronic atrial fibrillation Status: Chronic Assessment and plan: Chronically anticoagulated with xarelto 15mg PO QPM. H&H is currently stable. Current Visit: Yes (7) GERD (gastroesophageal reflux disease) Status: Chronic Assessment and plan: Continue PPI. Current Visit: Yes (8) Congestive heart failure Status: Acute Assessment and plan: She received 40mg Lasix IV in the emergency room but does not seem to be in any overt heart failure at this time. Her lungs are much more clear today and she does not have any significant edema. Echocardiogram done 01/03/17 revealed EF 60% , equivocal diastolic parameters, mild to moderate MR, moderate to severe TR, severe biatrial enlargement, and moderate pulmonary hypertension. Current Visit: Yes (9) Advanced age Status: Chronic Assessment and plan: Patient lives with her son and [id number]. Current Visit: Yes Cardiology - PN: Subj Interval history: Speech Pathologist Assistant: new to Dr. Collins PCP: Dr. Nguyen SUMMARY: Ms. Brito is a 86 year old female who was transferred to our facility from [facility] for further evaluation of shortness of breath and palpitations and diagnosis of right-sided pneumonia. She has a history of hypertension, diabetes, age, sedentary lifestyle. She also has a past medical history of deafness, chronic atrial fibrillation, GERD, congestive heart failure , and constipation. Since admission, she has had fluctuation of her heart rate with many elevated rates above 100. On 01/04/17, she had had persistent heart rates in the 120s and above and we were consulted to see her. She was trialed on amiodarone but received a few milliliters of this and developed a head reaction and became hypertensive. This was discontinued and her symptoms eventually subsided. We increased her dose of Toprol XL to 50mg po daily. JANUARY 04, 2017 UPDATE: Unfortunately, Ms. Brito's groundwater monitoring technician has been off all morning, so I'm unable to review her groundwater monitoring technician from this morning. This was put back on and her heart rates have been running in the 90s. She was having some rates as low as the 70s during the night. We will continue to monitor this throughout the day. If her rates trend up, we may increase her beta tresa but she is currently stable. Blood pressure remains well controlled. She is very glad her rodriguez catheter has been removed and reports she can tell her heart isn't beating as fast today. She seems to be improving and is breathing comfortably upon my exam today. She states she is having a dry cough, but hasn't really coughed anything up. ASSESSMENT/PLAN: 1. ATRIAL FIBRILLATION WITH RVR - She remains in atrial fibrillation, rates better controlled today in the 90s. Continue Toprol XL 50mg po daily. Will continue to monitor. Will await additional reccomendations from Dr. Collins. 2. PNEUMONIA - Chest x-ray at [place] showed right lower lobe pneumonia, small right pleural effusion, and cardiomegaly. She was admitted to hospitalist services and has been started on IV antibiotics and breathing treatments. She also has O2 PRN. 3. DEAFNESS - patient is able to read lips and also has a dry erase board in the room to assist with communication. She is also able to speak but at times it is difficult to understand her. 4. HYPERTENSION - Has been fairly well controlled with occasional elevated reading. Will continue to monitor and adjust accordingly. 5. DIABETES MELLITUS - She is on accuchecks with sliding scale insulin. 6. CHRONIC ATRIAL FIBRILLATION - Chronically anticoagulated with xarelto 15mg PO QPM. H&H is currently stable. 7. GERD - Continue PPI. 8. CONGESTIVE HEART FAILURE - She received 40mg Lasix IV in the emergency room but does not seem to be in any overt heart failure at this time. Her lungs are much more clear today and she does not have any significant edema. Echocardiogram done 01/03/17 revealed EF 60%, equivocal diastolic parameters, mild to moderate MR, moderate to severe TR, severe biatrial enlargement, and moderate pulmonary hypertension. 9. ADVANCED AGE - Patient lives with her son and [id number]. Exam (Progress Note) - Constitutional Vitals: Period Temp Pulse Resp BP Sys/Falcon Pulse Ox Last 24 Hr 96.5 F-98.4 F 72-124 16-20 120-145/56-74 91-100 Exam: General appearance: Pleasant and cooperative. No acute distress. Head exam: Present: normal inspection, normocephalic, atraumatic. Absent: hematoma, laceration Eye exam: Present: EOMI. Absent: conjunctival injection, nystagmus, periorbital swelling, scleral icterus, laceration to eyelids Pupils: Present: PERRL. Absent: constricted, dilated, fixed, irregular, unequal ENT exam: Present: normal exam, normal external ear exam (patient is deaf) Neck exam: Present: normal inspection. Absent: lymphadenopathy, meningismus, tenderness, thyromegaly Respiratory exam: Present: clear to auscultation. Absent: accessory muscle use , chest wall tenderness. Cardiovascular exam: Present: Irregular rate and rhythm, systolic murmur. Absent: gallop, rubs GI/Abdominal exam: Present: normal bowel sounds, soft. Absent: distended, firm , guarding, hernia, mass, tenderness, rebound. Extremities exam: Present: normal inspection, normal capillary refill. Upper extremity pulses 2+. Lower extremity pulses 2+. Absent: calf tenderness, edema Musculoskeletal: Present: No Fluid Collection, No Pain, Normal Range of Motion Back exam: Present: normal inspection. Absent: muscle spasm, vertebral tenderness Neurological exam: Present: alert, oriented X3, grossly intact without resting or essential tremor Psychiatric exam: Present: normal affect, normal mood Skin exam: Present: normal color, warm, dry, intact. Absent: cyanosis, diaphoretic, rash, urticaria Result/EKG - Labs CBC & BMP: 01/04/17 04:10 01/04/17 04:10 Lab Results: I have reviewed the past 24 hour labs Labs: Laboratory Results - last 24 hr 01/03/17 01/03/17 01/03/17 11:23 16:30 20:09 WBC RBC Hgb Hct MCV MCH MCHC RDW Plt Count MPV Neut % (Auto) Lymph % (Auto) [place] % (Auto) Eos % (Auto) Baso % (Auto) Neut # (Auto) Lymph # (Auto) [place] # (Auto) Eos # (Auto) Baso # (Auto) Immature Gran % Nucleated RBC % Immature Gran # Nucleated RBCs # Immature Plt Fraction Sodium Potassium Chloride Carbon Dioxide Anion Gap BUN Creatinine GFR Calculation BUN/Creatinine Ratio Glucose POC Glucose 225 H 265 H 233 H Calculated Osmolality Calcium Magnesium Total Creatine Kinase Troponin I 01/04/17 01/04/17 01/04/17 04:10 04:10 04:10 WBC 7.0 RBC 4.03 Hgb 11.2 L Hct 35.7 MCV 88.6 MCH 28 MCHC 31.4 L RDW 15.3 Plt Count 175 MPV 11.8 Neut % (Auto) 65.9 Lymph % (Auto) 18.5 L [place] % (Auto) 13.5 H Eos % (Auto) 1.4 Baso % (Auto) 0.3 Neut # (Auto) 4.6 Lymph # (Auto) 1.3 L [place] # (Auto) 1.0 H Eos # (Auto) 0.1 Baso # (Auto) 0.0 Immature Gran % 0.4 Nucleated RBC % 0.0 Immature Gran # 0.03 Nucleated RBCs # 0.00 Immature Plt Fraction 0.0 Sodium 141 Potassium 4.5 Chloride 100 Carbon Dioxide 35 H Anion Gap 10.5 BUN 20 H Creatinine 0.90 GFR Calculation 57 BUN/Creatinine Ratio 22.00 H Glucose 115 H POC Glucose Calculated Osmolality 284.3 Calcium 9.3 Magnesium 2.3 Total Creatine Kinase 25 L Troponin I < 0.015 01/04/17 07:40 WBC RBC Hgb Hct MCV MCH MCHC RDW Plt Count MPV Neut % (Auto) Lymph % (Auto) [place] % (Auto) Eos % (Auto) Baso % (Auto) Neut # (Auto) Lymph # (Auto) [place] # (Auto) Eos # (Auto) Baso # (Auto) Immature Gran % Nucleated RBC % Immature Gran # Nucleated RBCs # Immature Plt Fraction Sodium Potassium Chloride Carbon Dioxide Anion Gap BUN Creatinine GFR Calculation BUN/Creatinine Ratio Glucose POC Glucose 94 Calculated Osmolality Calcium Magnesium Total Creatine Kinase Troponin I - EKG EKG results: interpreted by me EKG shows: atrial fibrillation Quality Measures - VTE Contraindication to Pharmacological VTE Prophylaxis: Already on Theraputic Agent , No Prophylaxis Needed
--- NOTE | 2017-01-04 12:33 | Hospitalist Progress Note ---
Assessment and Plan - Time spent with patient Time spent with patient: Less than 30 minutes (1) Dyspnea Status: Acute Assessment and plan: 01/04/17 Continue antibiotics, nebs, oxygen therapy, monitor for final blood culture results; repeat cxr in a.m. 01/03/17 Admit for right pneumonia. Start antibiotics, IV hydration, nebs, supplemental oxygen as needed. Current Visit: Yes (2) Atrial fibrillation with RVR Status: Acute Assessment and plan: 01/04/17 - Cardiology following and appreciate recommendations with care. She remains in AFib with better rate control; Toprol xl continue daily. continue to monitor. 01/03/17 Cardiazem was given at [facility]; currently patient is Afib with controlled rate of 84-90 Current Visit: Yes (3) Diabetes mellitus Status: Chronic Assessment and plan: Continue to monitor; continue sliding scale, accuchecks. Current Visit: Yes (4) Hypertension Status: Chronic Assessment and plan: controlled. Will continue to monitor. Current Visit: Yes Hospitalist: Subjective Interval history: Ms Brito was seen and chart reviewed. She verbalized feeling much better this a.m. She reports the tightness in her chest has greatly improved and overall breathing better. She denies chest pain, fever, chills, or nausea. Exam - Constitutional Vitals: Period Temp Pulse Resp BP Sys/Falcon Pulse Ox Last 24 Hr 96.5 F-98.4 F 72-124 16-20 121-145/64-74 91-100 General appearance: normal weight - Head Head exam: Present: normal inspection - Eye Eye exam: Present: EOMI Pupils: Present: SAMY - Neck Neck exam: Present: normal inspection. Absent: thyromegaly - Respiratory Respiratory exam: Present: clear to auscultation bilaterally. Absent: stridor, wheezes - Cardiovascular Cardiovascular exam: Present: irregular rhythm (chronic afib) - GI/Abdominal GI/Abdominal exam: Present: normal bowel sounds, soft. Absent: tenderness, rebound - Extremities Exam Extremities exam: Present: full ROM. Absent: edema - Neurological Exam Neurological exam: Present: alert, oriented X3 - Psychiatric Psychiatric exam: Present: normal affect, normal mood. Absent: agitated, anxious - Skin Skin exam: Present: normal color, warm, dry Results - Labs CBC & BMP: 01/04/17 04:10 01/04/17 04:10 Lab Results: I have reviewed the past 24 hour labs Labs: H&H remain stable Electrolytes remain stable BUN improved to 20 from 26 Creatinine improved to 0.90 from 1.10 Troponin remains negative - Diagnostic Findings Procedure: Chest x-ray: report reviewed by me (01/04/17 no significant change and right lung infiltrate superimposed on cardiomegaly and fibroemphysematous change, follow-up until clear is necessary to exclude underlying mass or hilar adenopathy) Quality Measures - VTE Contraindication to Pharmacological VTE Prophylaxis: Already on Theraputic Agent , No Prophylaxis Needed
[2017-01-04] MEDS: SODIUM CHLORIDE 0.9% 1,000 ML IV SCH (15:16)
[2017-01-04] MEDS: LEVOFLOXACIN INJ 750 MG in PREMIX 1 EACH IV SCH (17:41)
[2017-01-04] MEDS: RIVAROXABAN 15 MG TABLET PO SCH (18:01)
[2017-01-04] MEDS: PRAVASTATIN 40 MG TABLET PO SCH (21:27)
[2017-01-04] MEDS: MONTELUKAST 10 MG TABLET PO SCH (21:27)
[2017-01-05] MEDS: ALBUTEROL/IPRATROPIUM 3 ML NEB RESP TX SCH ×4 (00:08→19:43)
[2017-01-05 05:04] LABS: Basophils % 0.4 % (0.0-0.8); Eosinophils # 0.1 10*3/uL (0.0-0.87); Eosinophils % 1.8 % (0.00-10.9); Hematocrit 39.8 VOL% (35.7-47.0); Hemoglobin 12.5 GM/DL (12.0-16.0); Immature Granulocytes % 0.5 %; Immature Granulocytes Absolute 0.04 #; Lymphocytes # 0.9 10*3/uL (1.4-4.0); Lymphocytes % 11.3 % (21.3-54.2); Mean Corpuscular HGB Conc 31.4 GM/DL (32-36); Mean Corpuscular Hemoglobin 28 PG (27-34); Mean Corpuscular Volume 88.6 FL (87-102); Mean Platelet Volume 11.7 FL (9.6-12.0); Monocytes % 12.6 % (1.7-12.7); Neutrophils # 5.7 10*3/uL (1.4-7.4); Neutrophils % 73.4 % (38.7-73.9); Platelet Count 202 T/CUMM (130-400); Red Blood Count 4.49 MC/CUMM (3.8-5.5); Red Cell Distribution Width 15.1 % (9.3-17.3); White Blood Count 7.7 T/CUMM (4-12)
[2017-01-05 05:44] LABS: Calcium 9.4 MG/DL (8.5-10.1); Magnesium 2.2 MG/DL (1.8-2.4); Osmolality,Calculated 282.1 MOS/KG (273-304); Potassium 3.7 MMOL/L (3.5-5.1); Risk Ratio 1.55; VLDL CHOLESTEROL 7.8 MG/DL
[2017-01-05] MEDS: MEROPENEM 500 MG in SODIUM CHLORIDE 0.9% 100 ML IV SCH ×2 (09:06→21:11)
[2017-01-05] MEDS: glipiZIDE 5 MG TABLET PO SCH ×2 (09:06→16:42)
[2017-01-05] MEDS: METOPROLOL SUCCINATE XL 50 MG TABLET PO SCH (09:06)
[2017-01-05] MEDS: FLUTICASONE 50 MCG NASAL SPRAY 16 GM BOTTLE BOTH NARES SCH ×2 (09:07→21:11)
[2017-01-05] MEDS: DOCUSATE SODIUM 100 MG CAPSULE PO SCH ×2 (09:07→21:11)
[2017-01-05] MEDS: INSULIN LISPRO 100 UNIT/ML SUBCUT SCH ×4 (09:07→22:13)
[2017-01-05] MEDS: SERTRALINE 25 MG TABLET PO SCH (09:07)
[2017-01-05] MEDS: LACTULOSE 20 GM/30 ML UDCUP PO SCH (09:07)
[2017-01-05] MEDS: FLUTICASONE/SALMETEROL 250-50 DISKUS 14 DOSE INH SCH ×2 (09:07→21:11)
[2017-01-05] MEDS: POLYVINYL ALCOHOL 1.4% OPH SOLN 15 ML BOTTLE BOTH EYES SCH ×4 (09:07→21:11)
[2017-01-05] MEDS: PANTOPRAZOLE 40 MG TABLET PO SCH (09:07)
[2017-01-05] MEDS: TELMISARTAN 40 MG TABLET PO SCH (09:07)
--- NOTE | 2017-01-05 14:41 | Hospitalist Progress Note ---
Assessment and Plan (1) Pneumonia Status: Acute Assessment and plan: The patient has controlled atrial fibrillation at present. Her present medications appear to be appropriate to reduce ventricular response and the patient has a good sense of well-being. We will continue present antibiotics and anticipate discharge home on Sunday. Current Visit: Yes (2) Atrial fibrillation with RVR Status: Acute Current Visit: Yes Hospitalist: Subjective Interval history: Mrs. Brito is improving slowly. I anticipate she will be ready for discharge home on Sunday. The patient has less shortness of breath is able to communicate using white marker board. Exam - Constitutional Vitals: Period Temp Pulse Resp BP Sys/Falcon Pulse Ox Last 24 Hr 96.4 F-98.4 F 82-112 16-22 110-145/55-83 94-99 Exam: Constitutional System: Minimal distress on account of palpitations. No tremulousness. Head: Normocephalic, atraumatic. Ears, Nose and Throat System: No evidence of Otitis or Mastoiditis. No epistaxis or discharge Eyes System: Pupils equal, round, and reactive. Extraocular muscles intact. Neck: Supple, without adenopathy, No jugular venous distention. No thyromegaly , neck mass, or prior surgery apparent. Respiratory System: Chest less congested to auscultation. Cardiovascular System: Heart with irregular, tachycardic rate and rhythm. No murmur. GI System: Abdomen soft, nontender. Normo active bowel sounds present. Musculoskeletal System: limbs with no pedal edema. Full distal pulses. Neurological System: No discernable sensory deficit. No aphasia Psychiatric System: Conversation is rational Results - Labs CBC & BMP: 01/05/17 04:11 01/05/17 04:11 Lab Results: I have reviewed the past 24 hour labs Quality Measures - VTE Contraindication to Pharmacological VTE Prophylaxis: Already on Theraputic Agent , No Prophylaxis Needed
[2017-01-05] MEDS: LEVOFLOXACIN INJ 750 MG in PREMIX 1 EACH IV SCH (17:47)
[2017-01-05] MEDS: RIVAROXABAN 15 MG TABLET PO SCH (18:40)
[2017-01-05] MEDS: MONTELUKAST 10 MG TABLET PO SCH (21:11)
[2017-01-05] MEDS: PRAVASTATIN 40 MG TABLET PO SCH (21:11)
[2017-01-06] MEDS: ALBUTEROL/IPRATROPIUM 3 ML NEB RESP TX SCH ×4 (02:23→20:07)
[2017-01-06] MEDS: SODIUM CHLORIDE 0.9% 1,000 ML IV SCH ×3 (02:45→21:35)
[2017-01-06] MEDS: glipiZIDE 5 MG TABLET PO SCH ×2 (08:32→16:59)
[2017-01-06] MEDS: METOPROLOL SUCCINATE XL 50 MG TABLET PO SCH (08:32)
[2017-01-06] MEDS: SERTRALINE 25 MG TABLET PO SCH (08:32)
[2017-01-06] MEDS: FLUTICASONE 50 MCG NASAL SPRAY 16 GM BOTTLE BOTH NARES SCH ×2 (08:33→21:35)
[2017-01-06] MEDS: LACTULOSE 20 GM/30 ML UDCUP PO SCH (08:33)
[2017-01-06] MEDS: POLYVINYL ALCOHOL 1.4% OPH SOLN 15 ML BOTTLE BOTH EYES SCH ×4 (08:33→21:35)
[2017-01-06] MEDS: FLUTICASONE/SALMETEROL 250-50 DISKUS 14 DOSE INH SCH ×2 (08:33→21:35)
[2017-01-06] MEDS: PANTOPRAZOLE 40 MG TABLET PO SCH (08:33)
[2017-01-06] MEDS: TELMISARTAN 40 MG TABLET PO SCH (08:33)
[2017-01-06] MEDS: INSULIN LISPRO 100 UNIT/ML SUBCUT SCH ×4 (08:34→21:40)
[2017-01-06] MEDS: DOCUSATE SODIUM 100 MG CAPSULE PO SCH ×2 (08:37→21:35)
--- NOTE | 2017-01-06 10:15 | XRay Report ---
Exam: XR chest 1V portable Date: 01/06/2017 8:37 AM Indication: Follow-up pneumonia Comparison: 01/04/2017 Technical: AP Findings: Cardiomegaly is present with low volume effusions and alveolar edema with wedge-shaped area of alveolar infiltrate in the right mid chest. ASVD is present. External cardiac leads are present. Mediastinum is otherwise intact. No pneumothorax. Impression: 1. Cardiomegaly with CHF and bilateral effusions with underlying alveolar infiltrate or edema in the right mid chest superimposed on COPD changes. 2. ASVD. PROCEDURE INTERPRETED AT [facility] DEPARTMENT OF RADIOLOGY Final Report Signed by: Dr. Michael Christensen
[2017-01-06] MEDS: MEROPENEM 500 MG in SODIUM CHLORIDE 0.9% 100 ML IV SCH ×2 (10:49→21:34)
--- NOTE | 2017-01-06 14:23 | Hospitalist Progress Note ---
Assessment and Plan (1) Pneumonia Status: Acute Assessment and plan: The patient has controlled atrial fibrillation at present. Her present medications appear to be appropriate to reduce ventricular response and the patient has a good sense of well-being. We will continue present antibiotics and anticipate discharge home on Sunday. Current Visit: Yes (2) Atrial fibrillation with RVR Status: Acute Current Visit: Yes Hospitalist: Subjective Interval history: Ms. Brito continues to improve slowly. The patient will tentatively go to [facility] bed tomorrow. Exam - Constitutional Vitals: Period Temp Pulse Resp BP Sys/Falcon Pulse Ox Last 24 Hr 97.4 F-98.4 F 60-109 16-20 120-157/59-72 83-99 Exam: Constitutional System: Minimal distress on account of palpitations. No tremulousness. Head: Normocephalic, atraumatic. Ears, Nose and Throat System: No evidence of Otitis or Mastoiditis. No epistaxis or discharge Eyes System: Pupils equal, round, and reactive. Extraocular muscles intact. Neck: Supple, without adenopathy, No jugular venous distention. No thyromegaly , neck mass, or prior surgery apparent. Respiratory System: Chest less congested to auscultation. Cardiovascular System: Heart with irregular, tachycardic rate and rhythm. No murmur. GI System: Abdomen soft, nontender. Normo active bowel sounds present. Musculoskeletal System: limbs with no pedal edema. Full distal pulses. Neurological System: No discernable sensory deficit. No aphasia Psychiatric System: Conversation is rational Results - Labs CBC & BMP: 01/05/17 04:11 01/05/17 04:11 Lab Results: I have reviewed the past 24 hour labs Quality Measures - VTE Contraindication to Pharmacological VTE Prophylaxis: Already on Theraputic Agent , No Prophylaxis Needed
[2017-01-06] MEDS: RIVAROXABAN 15 MG TABLET PO SCH (18:07)
[2017-01-06] MEDS: LEVOFLOXACIN INJ 750 MG in PREMIX 1 EACH IV SCH (18:07)
[2017-01-06] MEDS: MONTELUKAST 10 MG TABLET PO SCH (21:35)
[2017-01-06] MEDS: PRAVASTATIN 40 MG TABLET PO SCH (21:35)
[2017-01-07] MEDS: ALBUTEROL/IPRATROPIUM 3 ML NEB RESP TX SCH ×3 (00:46→13:04)
[2017-01-07] MEDS: SODIUM CHLORIDE 0.9% 1,000 ML IV SCH (03:57)
[2017-01-07 05:22] LABS: Basophils % 0.5 % (0.0-0.8); Eosinophils # 0.2 10*3/uL (0.0-0.87); Eosinophils % 3.6 % (0.00-10.9); Hematocrit 36.4 VOL% (35.7-47.0); Hemoglobin 11.6 GM/DL (12.0-16.0); Immature Granulocytes % 0.2 %; Immature Granulocytes Absolute 0.01 #; Lymphocytes # 1.9 10*3/uL (1.4-4.0); Mean Corpuscular HGB Conc 31.9 GM/DL (32-36); Mean Corpuscular Hemoglobin 28 PG (27-34); Mean Corpuscular Volume 87.9 FL (87-102); Mean Platelet Volume 11.6 FL (9.6-12.0); Monocytes # 0.7 10*3/uL (0.11-0.8); Monocytes % 11.3 % (1.7-12.7); Neutrophils # 3.3 10*3/uL (1.4-7.4); Neutrophils % 53.4 % (38.7-73.9); Platelet Count 216 T/CUMM (130-400); Red Blood Count 4.14 MC/CUMM (3.8-5.5); Red Cell Distribution Width 14.9 % (9.3-17.3); White Blood Count 6.2 T/CUMM (4-12)
[2017-01-07 06:05] LABS: Magnesium 2.1 MG/DL (1.8-2.4); Potassium 3.8 MMOL/L (3.5-5.1)
[2017-01-07] MEDS: MEROPENEM 500 MG in SODIUM CHLORIDE 0.9% 100 ML IV SCH (09:29)
[2017-01-07] MEDS: FLUTICASONE/SALMETEROL 250-50 DISKUS 14 DOSE INH SCH (09:30)
[2017-01-07] MEDS: glipiZIDE 5 MG TABLET PO SCH (09:30)
[2017-01-07] MEDS: TELMISARTAN 40 MG TABLET PO SCH (09:30)
[2017-01-07] MEDS: FLUTICASONE 50 MCG NASAL SPRAY 16 GM BOTTLE BOTH NARES SCH (09:30)
[2017-01-07] MEDS: INSULIN LISPRO 100 UNIT/ML SUBCUT SCH ×2 (09:30→11:50)
[2017-01-07] MEDS: LACTULOSE 20 GM/30 ML UDCUP PO SCH (09:30)
[2017-01-07] MEDS: METOPROLOL SUCCINATE XL 50 MG TABLET PO SCH (09:30)
[2017-01-07] MEDS: DOCUSATE SODIUM 100 MG CAPSULE PO SCH (09:30)
[2017-01-07] MEDS: POLYVINYL ALCOHOL 1.4% OPH SOLN 15 ML BOTTLE BOTH EYES SCH ×2 (09:30→12:22)
[2017-01-07] MEDS: PANTOPRAZOLE 40 MG TABLET PO SCH (09:30)
[2017-01-07] MEDS: SERTRALINE 25 MG TABLET PO SCH (09:30)
--- NOTE | 2017-01-07 10:26 | Discharge Summary ---
Hospital Course - Hospital Course Hospital Course: The patient was admitted to the hospital with shortness of breath cough and fever. She was treated for bacterial pneumonia. The patient has underlying atrial fibrillation and at one point had rapid ventricular response. Cardiology was consulted and heart rhythm was controlled. The patient is now returned to oral medications. The patient's breathing has improved but she is somewhat debilitated. The patient will transfer to [facility] for continued IV antibiotics for an additional 4 days and to continue physical therapy to get stronger before returning home. On the date of discharge, the chest has a few rhonchi in the right lower lung. Heart has irregular rhythm with controlled rate. Patient medications were reconciled upon admission, and again at the time of discharge. The patient was screened for tobacco use and found to be a never smoker. The patient's medical decsion maker is [themself], and when asked, they asked to be [Full code]. Discharge Time was 36 minutes, including final examination, evaluation and planning, education, reconciliation of medications, writing prescriptions, coordinating care with trimming caser, and preparing discharge documentation. - Time spent with patient Time with patient DS: Greater than 30 minutes Diagnosis - Discharge Diagnosis (1) Pneumonia Status: Acute (2) Atrial fibrillation with RVR Status: Resolved Discharge Plan - Discharge Data Disposition: Swing Bed, Hos Based, [facility] Condition at Discharge: Stable Discharge Diet: heart healthy Activity: as per physical therapy - Discharge Medications New Ciprofloxacin Tab [Cipro Tab] 250 mg PO BID #14 tablet HYDROcodone/ACETAMIN 5-325 [[place] 5-325] 1 tablet PO Q4H PRN #30 tablet PRN Reason: Pain Mild (1-3) Metoprolol Succinate Xl [Toprol Xl] 50 mg PO DAILY #0 tablet Acetaminophen Tab [Tylenol Tab] 650 mg PO Q4H PRN tablet PRN Reason: Fever, Headache, Mild Pain Meropenem [Merrem] 500 mg IV Q12H vial Continue Theophylline ER Cap (24 Hr) [Simone-24] 300 mg PO QAM Ondansetron [Ondansetron Odt] 4 mg PO BID PRN PRN Reason: Nausea/Vomiting Albuterol Inhaler [Proventil Inhaler] 2 puff INH Q6H PRN PRN Reason: Shortness Of Breath/Wheezing Dextran 70/Hypromellose/Pf [Genteal Tears 0.1%-0.3% Drop] 1 drop BOTH EYES QID Diclofenac Sodium [Diclofenac Sodium 1% Gel] 1 applic TOP QID PRN PRN Reason: Pain Fluticasone 50 Mcg Nasal Grandin [Flonase Nasal Grandin] 1 spray BOTH NARES BID Docusate Sodium Cap [Colace Cap] 100 mg PO BID Fluticasone/Salmeterol 250-50 [Advair 250-50] 1 puff INH BID Gabapentin Cap/Tab [Neurontin Cap/Tab] 100 mg PO TID PRN PRN Reason: LEG PAIN Lactulose 20 gm PO QAM Metformin HCl [Metformin HCl ER] 1,000 mg PO DAILY W/BREAKFAST Pravastatin [Pravachol] 40 mg PO BEDTIME Montelukast Tab [Singulair Tab] 10 mg PO BEDTIME Telmisartan 40 mg PO QAM Sertraline [Zoloft] 25 mg PO QAM Albuterol Neb [Proventil Neb] 2.5 mg RESP TX Q4H PRN PRN Reason: Shortness Of Breath/Wheezing Cyanocobalamin (Vitamin B-12) [Cyanocobalamin Injection] 1,000 mcg IJ Q30D glipiZIDE [Glipizide] 10 mg PO BIDAC Omeprazole 20 mg PO AC BREAKFAST Rivaroxaban [Xarelto] 15 mg PO QPM Discontinued Metoprolol Succinate 25 mg PO QAM - Follow Up or Referral - Forms/Instructions Exam - Constitutional Vitals: Period Temp Pulse Resp BP Sys/Falcon Pulse Ox Last 24 Hr 96.4 F-98.4 F 80-100 12-20 126-138/66-72 93-100 Discharge Results Procedures and tests throughout hospitalization: Pending Orders 01/02/17 20:37 Blood Culture Routine Labs on day of discharge: Labs from last 24 hours 01/07/17 01/07/17 01/07/17 08:18 04:50 04:50 WBC 6.2 RBC 4.14 Hgb 11.6 L Hct 36.4 MCV 87.9 MCH 28 MCHC 31.9 L RDW 14.9 Plt Count 216 MPV 11.6 Neut % (Auto) 53.4 Lymph % (Auto) 31.0 [place] % (Auto) 11.3 Eos % (Auto) 3.6 Baso % (Auto) 0.5 Neut # (Auto) 3.3 Lymph # (Auto) 1.9 [place] # (Auto) 0.7 Eos # (Auto) 0.2 Baso # (Auto) 0.0 Immature Gran % 0.2 Nucleated RBC % 0.0 Immature Gran # 0.01 Nucleated RBCs # 0.00 Immature Plt Fraction 0.0 Sodium 143 Potassium 3.8 Chloride 107 Carbon Dioxide 30 Anion Gap 9.8 BUN 15 Creatinine 0.70 GFR Calculation 77 BUN/Creatinine Ratio 21.00 H Glucose 71 L POC Glucose 79 Calculated Osmolality 283.0 Calcium 9.0 Magnesium 2.1 01/06/17 01/06/17 15:56 12:07 WBC RBC Hgb Hct MCV MCH MCHC RDW Plt Count MPV Neut % (Auto) Lymph % (Auto) [place] % (Auto) Eos % (Auto) Baso % (Auto) Neut # (Auto) Lymph # (Auto) [place] # (Auto) Eos # (Auto) Baso # (Auto) Immature Gran % Nucleated RBC % Immature Gran # Nucleated RBCs # Immature Plt Fraction Sodium Potassium Chloride Carbon Dioxide Anion Gap BUN Creatinine GFR Calculation BUN/Creatinine Ratio Glucose POC Glucose 247 H 170 H Calculated Osmolality Calcium Magnesium Preliminary micro results at discharge 01/02/17 20:37 Blood Culture - Preliminary Blood No growth at 3 days 01/02/17 20:37 Blood Culture - Preliminary Blood No growth at 3 days DS: Provider Date of admission: 01/02/17 17:26 Primary care physician: . No PCP Attending physician on admission: Quoc Hopkins MD Consults: 01/03/17 14:07 Consult to Physician [CONS] Routine Comment: atrial fib/ RVR Consulting Provider: Ny Collins 01/05/17 13:04 Consult to Case Mgmt/Social Srvs [CONS] Routine Reason for Case Mgmt/Social Srvs: Swingbed/SNF/Intermediate Consult to Occupational Therapy [CONS] Routine Reason for Occupational Therapy: Evaluate and Treat Consult to Physical Therapy [CONS] Routine Reason for Physical Therapy: Evaluate and Treat Discharging clinician: Brendan Fernandez MD
[2017-01-07 12:32] VITALS: BP 148/78
== END 2017-01-07 12:22 | disposition swing bed (61) | DRG 291 ==
LOC: N.ED 16:32 → N.EDINP 17:26 → SUATTDRO 17:26 → N.TELES 18:33
PROVIDERS: ADMIT Family Medicine; ATTEND Internal Medicine